=== PATIENT | female | born 1985 | race Caucasian/White ===

== ENCOUNTER 2018-03-26 13:03 | Emergency (ER) | payer SELFPAY ==
--- NOTE | 2018-03-26 13:05 | ED Physician Chart ---
ED Chief Complaint/HPI - Patient Information Date Seen:: 03/26/18 Time Seen:: 13:05 Chief Complaint:: Toothache History of Present Illness:: 32 yo female with a dental brace for 6 months, developed pain in left upper molars for one week. Patient presented to ER for evaluation of worsening pain since 2 days ago. She denied any fever or chills. She stated that she would have a dentist's appointment in one week. ED Review of Systems - Review of Systems General/Constitutional: No fever, No chills Skin: No rash Head: No headache Eyes: No pain ENT: No nasal drainage Neck: No neck pain Cardio Vascular: No chest pain Pulmonary: No SOB GI: No nausea, No vomiting Musculoskeletal: No bone or joint pain Neurological: No focal symptoms ED Past Medical History - Past Medical History Past Medical History: Other () Social History: Non Smoker, No Alcohol, No Drug Use Surgical History: None Family Medical History - Family Member Mother History Unknown: Yes ED Physical Exam - Physical Examination General/Constitutional: Awake Head: Atraumatic Eyes: PERRL Skin: No skin lesions ENMT: Nasal exam nl Other ENMT comments:: Tenderness in left upper premolar and molar which had a caries with filling. Patient has a dental brace and the archwire appeared to have shifted out of the bracket on the left upper molar. No significant erythema of the gingiva surrounding the left upper premolar and molar. Neck: No nuchal rigidity Respiratory: No Wheeze/Rhonchi/Rales Cardio Vascular: RRR, No murmur, gallop, rubs, NL S1 S2 GI: No tenderness/rebounding/guarding Extremities: normal strength in all extremities Neuro/Psych: No focal deficits ED Assessment - Assessment General Assessment: Dental pain Dental caries Dental brace malfunction Assessment/Comments:: Clindamycin 300mg PO X 1 D/c home F/u with dentist [facility] ED Septic Shock - . Is Septic Shock (SBP<90, OR Lactate>4 mmol\L) present?: No ED Reassessment (Disposition) - Reassessment Reassessment:: Patient claimed to get insurance information from her car and never returned to ER. Reassessment Condition:: Improved - Patient Disposition Discharge/Transfer:: Home ED Discharge Plan - Patient Disposition Admit/Discharge/Transfer: PT DISCHARGED HOME Condition at Disposition: Stable Instructions: Dental Pain, [id number] Additional Instructions: Follow up with dentist for dental pain.
== END 2018-03-26 13:34 | disposition home or self-care (01) ==
LOC: ER 13:03
DX: K08.89 Other specified disorders of teeth and supporting structures (principal)
CPT/HCPCS: J1885; Z7502; Z7610